=== PATIENT | male | born 2000 | race Caucasian/White ===

== ENCOUNTER 2022-12-27 19:05 | Emergency (ER) | payer OTHER, SELFPAY ==
[2022-12-27 19:19] VITALS: BP 136/73; PULSE 88; RESP 18; TEMP 36.8; O2SAT 99
--- NOTE | 2022-12-27 19:45 | ED.EXTPRO ---
HPI - Extremity Problem General Chief complaint: Extremity Problem,Nontraumatic Stated complaint: Infected toenail? Time Seen by Provider: 12/27/22 19:24 Source: patient and family History of Present Illness HPI Narrative: 22 years old white male came with pain at the right big toe started 1 month ago, was able to pull 1 side of the nail out 2 to 3 days ago and started on Keflex 2 days ago 500 twice daily for 10 days. Patient reported that he is not getting better. He denies any fever, chills, nausea, vomiting, trauma. Related Data Home Medications Medication Instructions Recorded Confirmed cephalexin 500 mg capsule mg 12/27/22 escitalopram oxalate 10 mg tablet mg 12/27/22 lisdexamfetamine 20 mg capsule mg 12/27/22 (Vyvanse) olanzapine 5 mg tablet mg 12/27/22 quetiapine 50 mg tablet mg 12/27/22 Allergies Allergy/AdvReac Type Severity Reaction Status Date / Time lithium AdvReac Hallucinati Verified 12/27/22 19:22 ng Review of Systems Review of Systems: All systems reviewed & are unremarkable except as noted in HPI and below Exam Narrative: General appearance: Well-developed, well-nourished Skin: Normal color Vascular: Normal peripheral pulses, normal capillary refill. Musculoskeletal: Right big toe showed 20% of the toenail, vertically, pulled at the lateral side no discharge, no swelling slightly tender at that area with slight redness but no warmth. Neurologic: Alert and oriented ?3, Course Vital Signs Vital signs: Vital Signs Temperature 36.8 C 12/27/22 19:19 Pulse Rate 88 12/27/22 19:19 Respiratory Rate 18 12/27/22 19:19 Blood Pressure 136/73 12/27/22 19:19 Pulse Oximetry 99 12/27/22 19:19 Oxygen Delivery Room Air 12/27/22 19:19 Temperature 36.8 C 12/27/22 19:19 Pulse Rate 88 12/27/22 19:19 Respiratory Rate 18 12/27/22 19:19 Blood Pressure 136/73 12/27/22 19:19 Pulse Oximetry 99 12/27/22 19:19 Oxygen Delivery Room Air 12/27/22 19:19 MDM - Extremity (Nontraumatic) MDM Narrative Medical decision making narrative: Patient had ingrown toenail, was able to remove 15 to 20% of the nail vertically at that area, on physical examination no pus, no erythema, no warmth, Patient was started on Keflex 500 twice daily which is insufficient. Patient should be on Keflex 500 4 times daily for 7 days with warm compresses. Patient was advised to keep his leg elevated, use warm compresses and use ibuprofen as needed. If there is no improvement to follow-up with Dr. Mitchell for further evaluation. No labs or surgical intervention at this time. Critical Care Time Critical Care Time Critical Care Time: No Discharge Plan Discharge Clinical Impression: Ingrowing right great toenail Patient Disposition: Home, Self-Care Condition: Stable Instructions: Antibiotic Form, Ingrown Nail (ED) Additional Instructions: Return if symptoms are worsening , call Dr. Mitchell for appointment, keep foot elevated, avoid wearing tight shoes, warm compresses. Prescriptions: New cephalexin 500 mg capsule 500 mg PO Q6H Qty: 28 0RF No Action olanzapine 5 mg tablet cephalexin 500 mg capsule escitalopram oxalate 10 mg tablet quetiapine 50 mg tablet Vyvanse 20 mg capsule Follow-up/Referrals: Hany Mitchell JR, MD [Physician] - 12/31/22 Antonella,Tangela Mock MD [Primary Care Provider] - Stand Alone Forms: Work/School Release IP
== END 2022-12-27 20:16 | disposition home or self-care (01) ==
LOC: ANHED 19:55
PROVIDERS: Emergency Provider Emergency Medicine; PCP Family Medicine
DX: L60.0 Ingrowing nail (principal)
CPT/HCPCS: 99283